=== PATIENT | female | born 1985 | race Caucasian/White ===

== ENCOUNTER 2017-11-11 19:37 | Emergency (ER) | payer MEDICAID, OTHER ==
[~2017-11-11 19:37] MED LIST: Z.0.NO CURRENT MEDS
[2017-11-11 20:07] VITALS: BP 127/60; PULSE 86; RESP 18; TEMP 98.4; O2SAT 99
[2017-11-11 22:12] VITALS: BP 134/74; PULSE 71; RESP 16; TEMP 98.2; O2SAT 100
[2017-11-11] MEDS ORDERED: SODIUM CHLOR 0.9% 1000 ML INJ 1,000 ML IV ONE (22:30)
[2017-11-11 22:45] LABS: AUTOMATED NEUTROPHIL # 10.5 TH/MM3 (1.8-7.7); BASOPHIL # 0.1 TH/MM3 (0-0.2); BASOPHIL % 0.3 % (0.0-2.0); EOSINOPHIL # 0.3 TH/MM3 (0-0.4); EOSINOPHIL % 2.3 % (0.0-4.0); HEMATOCRIT 40.4 % (35.0-46.0); HEMOGLOBIN 13.9 GM/DL (11.6-15.3); LYMPH % 23.6 % (9.0-44.0); LYMPHOCYTE # 3.6 TH/MM3 (1.0-4.8); MEAN CELL VOLUME 85.3 FL (80.0-100.0); MEAN CORPUSCULAR HEMOGLOBIN 29.2 PG (27.0-34.0); MEAN CORPUSCULAR HGB CONC 34.3 % (32.0-36.0); MEAN PLATELET VOLUME 7.2 FL (7.0-11.0); MONO % 5.2 % (0.0-8.0); MONOCYTE # 0.8 TH/MM3 (0-0.9); NEUT % 68.6 % (16.0-70.0); PLATELET COUNT 407 TH/MM3 (150-450); RED BLOOD COUNT 4.74 MIL/MM3 (4.00-5.30); RED CELL DISTRIBUTION WIDTH 13.1 % (11.6-17.2); WHITE BLOOD COUNT 15.4 TH/MM3 (4.0-11.0)
[2017-11-11 23:11] LABS: ALBUMIN 3.9 GM/DL (3.4-5.0); AST (GOT) 15 U/L (15-37); BICARBONATE 27.9 MEQ/L (21.0-32.0); BLOOD UREA NITROGEN 9 MG/DL (7-18); CALCIUM 9.2 MG/DL (8.5-10.1); CHLORIDE 105 MEQ/L (98-107); CREATININE 0.78 MG/DL (0.50-1.00); GLOMERULAR FILTRATION RATE 87 ML/MIN (>89); GLUCOSE,RANDOM 79 MG/DL (74-106); SODIUM (NA) 138 MEQ/L (136-145)
[2017-11-11 23:15] LABS: ALKALINE PHOSPHATASE 65 U/L (45-117); ALT (GPT) 24 U/L (10-53); TOTAL BILIRUBIN ADULT 0.2 MG/DL (0.2-1.0); TOTAL PROTEIN 7.6 GM/DL (6.4-8.2)
[2017-11-11 23:21] LABS: BACTERIA, URINE MANY /hpf; BILIRUBIN, URINE NEG (NEG); BLOOD, URINE NEG (NEG); GLUCOSE,URINE NEG (NEG); HYALINE CAST, URINE 2 /lpf (RARE); KETONE, URINE NEG (NEG); MUCUS URINE MANY /lpf (OCC); NITRITE,URINE POS (NEG); PH, URINE 6.5 (5.0-8.5); SQUAMOUS EPITHELIAL CELL URINE 5 /hpf (0-5); URINE COLOR YELLOW (YELLW/STRAW); URINE LEUKOCYTE ESTERASE TRACE (NEG)
[2017-11-11] MEDS ORDERED: LEVOFLOXACIN 500 MG PREMIX INJ 100 ML IV ONE (23:45)
[2017-11-11 23:58] VITALS: BP 121/70; PULSE 67; RESP 16; TEMP 98.5; O2SAT 100
[2017-11-12] MEDS ORDERED: KETOROLAC TROMETHAMINE 30 MG/ML (IVP) VIAL IV PUSH ONE (00:15)
--- NOTE | 2017-11-12 00:19 | PD ---
HPI Chief Complaint: Abdominal Pain Time Seen by Provider: 22:11 Travel History International Travel<30 days: No Contact w/Intl Traveler<30days: No Traveled to known affect area: No History of Present Illness HPI Pt has left lower quadrant pain for which she thinks is an ovarian cyst or ectopic of which she has had before . Foacl LLQ pain for 3 days getting worse not releived by motrin. pt had ectopic laproscopic removal and has had cyst laproscopic removal as well 2 separate surgeries .. POC urine negative for PFSH Past Medical History Gastrointestinal Disorders: Yes (IBS, Gastroenteritis) Musculoskeletal: Yes (chronic back pain) Respiratory: Yes (SARCOIDOSIS) Tetanus Vaccination: > 5 Years Influenza Vaccination: No ?: Not LMP: 10/07/17 : 3 Para: 3 Miscarriage: 2 Ovarian Cysts: Yes Tubal Ligation: Yes Past Surgical History Section: Yes Social History Alcohol Use: Yes (occaisonally) Tobacco Use: Yes (1PPD) Substance Use: No Allergies-Medications (Allergen,Severity, Reaction): Coded Allergies: amoxicillin (Unverified Allergy, Mild, 03/17/17) aspirin (Unverified Allergy, Mild, 03/17/17) latex (Unverified Allergy, Mild, 03/17/17) Reported Meds & Prescriptions Reported Meds & Active Scripts Active Ibuprofen 600 Mg Tab 600 Mg PO Q6H PRN Doxycycline Hyclate 100 Mg Cap 100 Mg PO BID Reported No Current Meds (Miscellaneous Medication) Misc Review of Systems Except as stated in HPI: all other systems reviewed are Neg Physical Exam Narrative GENERAL: non toxic appearing and non septic SKIN: Warm and dry. HEAD: Atraumatic. Normocephalic. EYES: Pupils equal and round. No scleral icterus. No injection or drainage. ENT: No nasal bleeding or discharge. Mucous membranes pink and moist. NECK: Trachea midline. No JVD. CARDIOVASCULAR: Regular rate and rhythm. RESPIRATORY: No accessory muscle use. Clear to auscultation. Breath sounds equal bilaterally. GASTROINTESTINAL: Abdomen soft, non-tender, nondistended. Hepatic and splenic margins not palpable. MUSCULOSKELETAL: Extremities without clubbing, cyanosis, or edema. No obvious deformities. NEUROLOGICAL: Awake and alert. No obvious cranial nerve deficits. Motor grossly within normal limits. Five out of 5 muscle strength in the arms and legs. Normal speech. PSYCHIATRIC: Appropriate mood and affect; insight and judgment normal. Left adnexal and left LOWER quadrant pain Data Data Last Documented VS Vital Signs Date Time Temp Pulse Resp B/P (MAP) Pulse Ox O2 Delivery O2 Flow Rate FiO2 11/12/17 01:57 11/11/17 23:58 98.5 67 16 100 Room Air Orders Orders Complete Blood Count With Diff (11/11/17 22:26) Comprehensive Metabolic Panel (11/11/17 22:26) Lipase (11/11/17 22:26) Sodium Chlor 0.9% 1000 Ml Inj (Ns 1000 M (11/11/17 22:30) Urinalysis - C+S If Indicated (11/11/17 22:47) Urine Culture (11/11/17 22:30) Levofloxacin 500 Mg Premix Inj (Levaquin (11/11/17 23:45) Us Pelvis Comp W Dop Transvag (11/11/17 ) Ketorolac Inj (Toradol Inj) (11/12/17 00:15) Ed Discharge Order (11/12/17 01:32) Labs Laboratory Tests Test 11/11/17 22:30 White Blood Count 15.4 TH/MM3 Red Blood Count 4.74 MIL/MM3 Hemoglobin 13.9 GM/DL Hematocrit 40.4 % Mean Corpuscular Volume 85.3 FL Mean Corpuscular Hemoglobin 29.2 PG Mean Corpuscular Hemoglobin Concent 34.3 % Red Cell Distribution Width 13.1 % Platelet Count 407 TH/MM3 Mean Platelet Volume 7.2 FL Neutrophils (%) (Auto) 68.6 % Lymphocytes (%) (Auto) 23.6 % Monocytes (%) (Auto) 5.2 % Eosinophils (%) (Auto) 2.3 % Basophils (%) (Auto) 0.3 % Neutrophils # (Auto) 10.5 TH/MM3 Lymphocytes # (Auto) 3.6 TH/MM3 Monocytes # (Auto) 0.8 TH/MM3 Eosinophils # (Auto) 0.3 TH/MM3 Basophils # (Auto) 0.1 TH/MM3 CBC Comment DIFF FINAL Differential Comment Urine Color YELLOW Urine Turbidity HAZY Urine pH 6.5 Urine Specific [place] 1.020 Urine Protein TRACE mg/dL Urine Glucose (UA) NEG mg/dL Urine Ketones NEG mg/dL Urine Occult Blood NEG Urine Nitrite POS Urine Bilirubin NEG Urine Urobilinogen LESS THAN 2.0 MG/DL Urine Leukocyte Esterase TRACE Urine RBC 1 /hpf Urine WBC 3 /hpf Urine Squamous Epithelial Cells 5 /hpf Urine Bacteria MANY /hpf Urine Hyaline Casts 2 /lpf Urine Mucus MANY /lpf Microscopic Urinalysis Comment CULTURE INDICATED Blood Urea Nitrogen 9 MG/DL Creatinine 0.78 MG/DL Random Glucose 79 MG/DL Total Protein 7.6 GM/DL Albumin 3.9 GM/DL Calcium Level 9.2 MG/DL Alkaline Phosphatase 65 U/L Aspartate Amino Transf (AST/SGOT) 15 U/L Alanine Aminotransferase (ALT/SGPT) 24 U/L Total Bilirubin 0.2 MG/DL Sodium Level 138 MEQ/L Potassium Level 3.8 MEQ/L Chloride Level 105 MEQ/L Carbon Dioxide Level 27.9 MEQ/L Anion Gap 5 MEQ/L Estimat Glomerular Filtration Rate 87 ML/MIN Lipase 363 U/L MDM Medical Decision Making Medical Screen Exam Complete: Yes Emergency Medical Condition: Yes Differential Diagnosis ,, Pt may have ectpic vs ovarian cyst vs PID vs UTI, Pyelonepritis Kidney stone other Narrative Course pt has UA + for infection and US negative for torsion a no signs of PID few very small cyst seen left ovary.. D/C antibiotics and motrin Diagnosis Primary Impression: Urinary tract infection Patient Instructions: General Instructions, Urinary Tract Infection in Women ( ED) Scripts Ibuprofen (Ibuprofen) 600 Mg Tab 600 MG PO Q6H Y for Pain/Inflammation, #40 TAB 0 Refills Prov: oJse Day MD 11/12/17 Doxycycline Hyclate (Doxycycline Hyclate) 100 Mg Cap 100 MG PO BID for Infection, #20 CAP 0 Refills Prov: Jose Day MD 11/12/17 Jose Day MD Nov 12, 2017 00:19
--- NOTE | 2017-11-12 00:20 | RADRPT ---
EXAM DATE/TIME: 11/11/2017 23:05 [facility] COMPARISON: No previous studies available for comparison. INDICATIONS : Pelvic pain. MEDICAL HISTORY : . Ovarian cysts. Ectopic . Miscarriage x 2. Twin gestation x 2. Sarcoidosis. IB S. Back pain. SURGICAL HISTORY : Tubal ligation. section. Laparoscopic ovarian cystectomy. ENCOUNTER: Initial ACUITY: 3 days PAIN SCORE: 6/10 LOCATION: Bilateral pelvis MEASUREMENTS: UTERUS: 9.8 x 6.5 x 4.6 cm ENDOMETRIAL STRIPE: 11 mm RIGHT OVARY: 3.7 x 2.6 x 1.5 cm LEFT OVARY: 3.6 x 2.6 x 1.8 cm FINDINGS: UTERUS: Possible anterior body fibroid measuring approximately 2 cm. Otherwise unremarkable. RIGHT OVARY: Ovary contains no mass or significant cystic lesion. LEFT OVARY: 2 small cysts, largest 17 mm MISCELLANEOUS: No free fluid. CONCLUSION: Unremarkable sonographic appearance of the pelvis. Khai Mayfield MD on November 12, 2017 at 0:14 Board Certified Radiologist. This report was verified electronically.
[2017-11-12] MEDS ORDERED: DOXY100C PO (01:34)
[2017-11-12] MEDS ORDERED: IBUP-232 PO (01:38)
== END 2017-11-12 01:58 | disposition home or self-care (01) ==
LOC: NEPC 19:37
DX: N39.0 Urinary tract infection, site not specified (principal); F17.200 Nicotine dependence, unspecified, uncomplicated
CPT/HCPCS: 76830; 76856; 80053; 81001; 83690; 85025; 87077; 87086; 87186; 93975; 96361; 96365; 96366; 96375; 99284; J1885; J1956; J7030

== ENCOUNTER 2017-11-25 21:13 | Emergency (ER) | payer MEDICAID ==
[~2017-11-25] VITALS: Ht 160 cm; Wt 68.0 kg
[~2017-11-25 21:13] MED LIST changes: +DOXY100C PO; +IBUP-232 PO
[2017-11-25 21:21] VITALS: BP 125/68; PULSE 77; RESP 15; TEMP 98.3; O2SAT 99
[2017-11-25 21:56] VITALS: BP 117/78; PULSE 77; RESP 16; O2SAT 98
--- NOTE | 2017-11-25 22:12 | PD ---
HPI Chief Complaint: Chest Pain Time Seen by Provider: 21:51 Travel History International Travel<30 days: No Contact w/Intl Traveler<30days: No Traveled to known affect area: No History of Present Illness HPI Patient is a 32-year-old female who was sleeping taking a nap prior to going to work. She awoke with severe left-sided chest pain that radiated up to her neck is been constant she did not take anything to alleviate the symptoms. She says it feels like my heart I ask her about what she ate prior to going to sleep she said the last no she had was chili fries at 3 PM but she reports she has them all the time and never has any acid reflux problems and never has had acid reflux. She denies any cardiac family history there is been no cardiac sudden in young teenagers nor has there been any family history of coronary artery disease before the age of 55 patient main complaint is a burning stabbing -like pain in her left chest that radiates up to her neck made worse with deep inspiration is made worse by palpation it started an hour prior to presentation to the ER [facility] Past Medical History Diminished Hearing: No Gastrointestinal Disorders: Yes (IBS, Gastroenteritis) Musculoskeletal: Yes (chronic back pain) Respiratory: Yes (Sarcoidosis) ?: Not LMP: 10/28/17 : 3 Para: 3 Miscarriage: 2 Ovarian Cysts: Yes Tubal Ligation: Yes Past Surgical History Section: Yes Social History Alcohol Use: Yes (occaisonally) Tobacco Use: Yes (1PPD) Substance Use: No Allergies-Medications (Allergen,Severity, Reaction): Coded Allergies: amoxicillin (Unverified Allergy, Mild, 03/17/17) aspirin (Unverified Allergy, Mild, 03/17/17) latex (Unverified Allergy, Mild, 03/17/17) Reported Meds & Prescriptions Reported Meds & Active Scripts Active No Active Prescriptions or Reported Medications Review of Systems Except as stated in HPI: all other systems reviewed are Neg HENT: Positive: Neck Pain Cardiovascular: Positive: Chest Pain or Discomfort Physical Exam Narrative GENERAL: reproducible CP with palpation of left sternum 4th rib area SKIN: Warm and dry. HEAD: Atraumatic. Normocephalic. EYES: Pupils equal and round. No scleral icterus. No injection or drainage. ENT: No nasal bleeding or discharge. Mucous membranes pink and moist. NECK: Trachea midline. No JVD. CARDIOVASCULAR: Regular rate and rhythm. EKG NSR rate 74 RESPIRATORY: No accessory muscle use. Clear to auscultation. Breath sounds equal bilaterally. Left parasternal left rib tender reproducible to palpation focal GASTROINTESTINAL: Abdomen soft, non-tender, nondistended. Hepatic and splenic margins not palpable. MUSCULOSKELETAL: Extremities without clubbing, cyanosis, or edema. No obvious deformities. NEUROLOGICAL: Awake and alert. No obvious cranial nerve deficits. Motor grossly within normal limits. Five out of 5 muscle strength in the arms and legs. Normal speech. PSYCHIATRIC: Appropriate mood and affect; insight and judgment normal. Data Data Last Documented VS Vital Signs Date Time Temp Pulse Resp B/P (MAP) Pulse Ox O2 Delivery O2 Flow Rate FiO2 11/25/17 21:56 77 16 117/78 (91) 98 Room Air 11/25/17 21:21 98.3 Orders Orders Famotidine Inj (Pepcid Inj) (11/25/17 22:15) Ondansetron Inj (Zofran Inj) (11/25/17 22:15) Chest, Pa & Lat (11/25/17 ) Troponin I (11/25/17 22:17) Complete Blood Count With Diff (11/25/17 22:17) Comprehensive Metabolic Panel (11/25/17 22:17) Electrocardiogram (11/25/17 ) Lorazepam Inj (Ativan Inj) (11/25/17 23:45) Ketorolac Inj (Toradol Inj) (11/25/17 23:45) Ed Discharge Order (11/26/17 01:36) Labs Laboratory Tests Test 11/25/17 22:50 White Blood Count 15.0 TH/MM3 Red Blood Count 4.52 MIL/MM3 Hemoglobin 13.4 GM/DL Hematocrit 38.2 % Mean Corpuscular Volume 84.4 FL Mean Corpuscular Hemoglobin 29.7 PG Mean Corpuscular Hemoglobin Concent 35.2 % Red Cell Distribution Width 13.0 % Platelet Count 359 TH/MM3 Mean Platelet Volume 7.6 FL Neutrophils (%) (Auto) 59.5 % Lymphocytes (%) (Auto) 33.0 % Monocytes (%) (Auto) 5.0 % Eosinophils (%) (Auto) 1.9 % Basophils (%) (Auto) 0.6 % Neutrophils # (Auto) 8.9 TH/MM3 Lymphocytes # (Auto) 4.9 TH/MM3 Monocytes # (Auto) 0.8 TH/MM3 Eosinophils # (Auto) 0.3 TH/MM3 Basophils # (Auto) 0.1 TH/MM3 CBC Comment DIFF FINAL Differential Comment Blood Urea Nitrogen 9 MG/DL Creatinine 0.71 MG/DL Random Glucose 84 MG/DL Total Protein 7.3 GM/DL Albumin 3.8 GM/DL Calcium Level 9.0 MG/DL Alkaline Phosphatase 58 U/L Aspartate Amino Transf (AST/SGOT) 19 U/L Alanine Aminotransferase (ALT/SGPT) 21 U/L Total Bilirubin 0.2 MG/DL Sodium Level 141 MEQ/L Potassium Level 3.9 MEQ/L Chloride Level 106 MEQ/L Carbon Dioxide Level 24.3 MEQ/L Anion Gap 11 MEQ/L Estimat Glomerular Filtration Rate 97 ML/MIN Troponin I LESS THAN 0.02 NG/ML MDM Medical Decision Making Medical Screen Exam Complete: Yes Emergency Medical Condition: Yes Differential Diagnosis Atypical chest pain versus pneumothorax versus esophagitis versus gastric reflux Narrative Course trop negative EKG was normal sinus rhythm at a rate of 74 bpm patient is safe to be discharged I have given her Pepcid and Zofran IV with minimal change in her pain I gave her Toradol and 0.5 mg of Ativan she feels improved labs and risk factors and exam lead me to believe this is a costochondritis muscle spasm there is no cardiac involvement and discharged home Diagnosis Primary Impression: Atypical chest pain Patient Instructions: Chest Wall Pain (ED), General Instructions Scripts Diazepam (Valium) 2 Mg Tab 2 MG PO TID Y for MUSCLE SPASM, #10 TAB 0 Refills Prov: Jose Day MD 11/26/17 Ibuprofen (Ibuprofen) 600 Mg Tab 600 MG PO Q6H Y for Pain/Inflammation, #40 TAB 0 Refills Prov: Jose Day MD 11/26/17 Disposition: 01 DISCHARGE HOME Condition: Good Jose Day MD Nov 25, 2017 22:12
[2017-11-25] MEDS ORDERED: FAMOTIDINE 20 MG/2 ML VIAL IV PUSH SCH (22:15)
[2017-11-25] MEDS ORDERED: ONDANSETRON HCL 4 MG/2 ML VIAL IV PUSH ONE (22:15)
--- NOTE | 2017-11-25 22:50 | RADRPT ---
EXAM DATE/TIME: 11/25/2017 22:34 [facility] COMPARISON: No previous studies available for comparison. INDICATIONS : Chest pain today. MEDICAL HISTORY : Sarcoidosis SURGICAL HISTORY : None. ENCOUNTER: Initial ACUITY: 1 day PAIN SCORE: 7/10 LOCATION: Left chest FINDINGS: PA and lateral views of the chest demonstrate the lungs to be symmetrically aerated without evidence of mass, infiltrate or effusion. The cardiomediastinal contours are unremarkable. Osseous structure s are intact. CONCLUSION: No evidence of acute cardiopulmonary disease. Khai Fletcher MD on November 25, 2017 at 22:47 Board Certified Radiologist. This report was verified electronically.
[2017-11-25 23:22] LABS: AUTOMATED NEUTROPHIL # 8.9 TH/MM3 (1.8-7.7); BASOPHIL # 0.1 TH/MM3 (0-0.2); BASOPHIL % 0.6 % (0.0-2.0); EOSINOPHIL # 0.3 TH/MM3 (0-0.4); EOSINOPHIL % 1.9 % (0.0-4.0); HEMATOCRIT 38.2 % (35.0-46.0); HEMOGLOBIN 13.4 GM/DL (11.6-15.3); LYMPHOCYTE # 4.9 TH/MM3 (1.0-4.8); MEAN CELL VOLUME 84.4 FL (80.0-100.0); MEAN CORPUSCULAR HEMOGLOBIN 29.7 PG (27.0-34.0); MEAN CORPUSCULAR HGB CONC 35.2 % (32.0-36.0); MEAN PLATELET VOLUME 7.6 FL (7.0-11.0); MONOCYTE # 0.8 TH/MM3 (0-0.9); NEUT % 59.5 % (16.0-70.0); PLATELET COUNT 359 TH/MM3 (150-450); RED BLOOD COUNT 4.52 MIL/MM3 (4.00-5.30)
[2017-11-25] MEDS ORDERED: KETOROLAC TROMETHAMINE 30 MG/ML (IVP) VIAL IV PUSH ONE (23:45)
[2017-11-25] MEDS ORDERED: LORazepam 2 MG/ML VIAL IV PUSH ONE (23:45)
[2017-11-25 23:54] LABS: ALBUMIN 3.8 GM/DL (3.4-5.0); ALT (GPT) 21 U/L (10-53); AST (GOT) 19 U/L (15-37); BICARBONATE 24.3 MEQ/L (21.0-32.0); BLOOD UREA NITROGEN 9 MG/DL (7-18); CHLORIDE 106 MEQ/L (98-107); CREATININE 0.71 MG/DL (0.50-1.00); GLOMERULAR FILTRATION RATE 97 ML/MIN (>89); GLUCOSE,RANDOM 84 MG/DL (74-106); SODIUM (NA) 141 MEQ/L (136-145)
[2017-11-25 23:58] LABS: ALKALINE PHOSPHATASE 58 U/L (45-117); TOTAL BILIRUBIN ADULT 0.2 MG/DL (0.2-1.0); TOTAL PROTEIN 7.3 GM/DL (6.4-8.2); TROPONIN I LESS THAN 0.02 NG/ML (0.02-0.05)
[2017-11-26] MEDS ORDERED: IBUP-232 PO (01:51)
[2017-11-26] MEDS ORDERED: DIAZ2 PO (01:51)
--- NOTE | 2017-11-26 13:38 | EKG ---
Date Performed: 11/25/2017 Time Performed: 21:52:16 PTAGE: 32 years EKG: Sinus rhythm NORMAL ECG NO PREVIOUS TRACING DOCTOR: Leonides Carbajal Interpretating Date/Time 11/26/2017 13:36:13
== END 2017-11-26 02:33 | disposition home or self-care (01) ==
LOC: NEPE 21:13
DX: R07.89 Other chest pain (principal); M54.2 Cervicalgia; D86.9 Sarcoidosis, unspecified; F17.200 Nicotine dependence, unspecified, uncomplicated; Z87.19 Personal history of other diseases of the digestive system
CPT/HCPCS: 71046; 80053; 84484; 85025; 93005; 96374; 96375; 99285; J1885; J2060; J2405